=== PATIENT | female | born 1985 | race Hispanic/Latino ===

== ENCOUNTER 2017-11-03 08:50 | Outpatient (CLI) | payer BC | END 2017-11-03 08:51 | disposition home or self-care (01) | LOC: BICULT 08:50 | PROVIDERS: ATTEND Physician Assistant | DX: N97.9 Female infertility, unspecified (principal); N94.89 Other specified conditions associated with female genital organs and menstrual cycle; N63.10 Unspecified lump in the right breast, unspecified quadrant | CPT/HCPCS: 76856 ==

== ENCOUNTER 2018-08-26 06:09 | Inpatient (IN) | payer BC ==
[2018-08-26] MEDS ORDERED: Bicitra 30 ML UDCUP PO SCH (06:18)
[2018-08-26] MEDS ORDERED: CEFAZOLIN/Water 2 GM/20 ML SYRINGE SLOW IVP SCH (06:18)
[2018-08-26] MEDS ORDERED: CEFAZOLIN 2 GM/50 ML-DEXTROSE 2 GM in Premix Bag 1 BAG IVPB SCH (06:30)
[2018-08-26 06:31] VITALS: BMI 29.2
[2018-08-26 07:05] LABS: Hemoglobin 10.4 g/dL (12.0-16.0); Mean Corpuscular HGB CONC 31.7 g/dL (32.0-36.0); Mean Corpuscular Hemoglobin 24.2 pg (27.0-31.0); Mean Corpuscular Volume 76.1 fL (78.0-98.0); Mean Platelet Volume 8.2 fL (7.4-10.4); Platelet Count 488 thou/uL (130-400); RBC Distribution Width 15.8 % (11.5-14.5); White Blood Cell (WBC) Count 14.9 thou/uL (4.8-10.8)
[2018-08-26] MEDS ORDERED: Oxytocin 10 UNITS/ML VIAL ONE (07:30)
[2018-08-26] MEDS ORDERED: Morphine PF 1 MG/ML SYR ONE (07:30)
[2018-08-26] MEDS ORDERED: Bupivacaine 0.75% W/DEXTROSE 8.25% 2 ML AMP ONE (07:31)
[2018-08-26] MEDS ORDERED: PHENYLEPHRINE-NS 100 MCG/ML 10 ML SYRINGE ONE ×3 (07:31→09:42)
[2018-08-26] MEDS ORDERED: Lidocaine 2% PF Inj 2 ML VIAL ONE (07:33)
[2018-08-26] MEDS ORDERED: Lidocaine 1% (PF) 30 ML VIAL ONE (07:34)
[2018-08-26 07:47] LABS: Syphilis Antibody Nonreactive (Nonreactive); Syphilis Antibody Index 0.05 S/CO (<1.00 Non-Reactive)
[2018-08-26 07:48] LABS: HBSAg Index 0.16 S/CO (0-0.99); Hep B Surf Ag Non-Reactive S/CO (NonReactive)
[2018-08-26] MEDS ORDERED: Naloxone HCl 0.4 mg/ml Vial IVP PRN ×2 (08:13)
[2018-08-26] MEDS ORDERED: L&D-Morphine 4 MG/ML VIAL SLOW IVP PRN (08:13)
[2018-08-26] MEDS ORDERED: Meperidine HCl/PF 25 MG/ML VIAL SLOW IVP PRN (08:13)
[2018-08-26] MEDS ORDERED: Eucerin (Mineral Oil/Petrolatum,White) 30 gm Jar TOP PRN (08:13)
[2018-08-26] MEDS ORDERED: Ondansetron PF 4 MG/2 ML Vial IVP PRN (08:13)
[2018-08-26] MEDS ORDERED: Promethazine HCl 25 MG/ML VIAL IM PRN (08:13)
[2018-08-26] MEDS ORDERED: HYDROmorphone 2 MG/ML VIAL SLOW IVP PRN (08:13)
[2018-08-26] MEDS ORDERED: Naloxone HCl 0.4 mg/ml Vial IV PRN (08:13)
[2018-08-26] MEDS ORDERED: Ondansetron HCl/PF 4 MG/2 ML Vial IVP PRN (08:13)
[2018-08-26] MEDS ORDERED: diphenhydrAMINE 50 MG/ML VIAL IVP PRN (08:13)
[2018-08-26] MEDS ORDERED: Promethazine HCl 25 MG SUPP PR PRN (08:13)
[2018-08-26] MEDS ORDERED: Ketorolac Tromethamine 30 MG/ML VIAL IVP SCH (08:15)
[2018-08-26] MEDS ORDERED: Communication Order-Pharmacy FS SCH (08:15)
[2018-08-26] MEDS ORDERED: Bisacodyl 10 MG SUPP PR PRN (08:56)
[2018-08-26] MEDS ORDERED: diphenhydrAMINE 25 MG CAP PO PRN (08:56)
[2018-08-26] MEDS ORDERED: Adacel (T-DAP) 0.5 ML VIAL IM ONE (08:56)
[2018-08-26] MEDS ORDERED: Acetaminophen 325 MG TAB PO PRN (08:56)
[2018-08-26] MEDS ORDERED: Ondansetron PF 4 MG/2 ML Vial ONE (09:00)
[2018-08-26] MEDS: Ondansetron PF 4 MG/2 ML Vial IVP PRN ×2 (09:03→13:12)
--- NOTE | 2018-08-26 09:50 | HP ---
HISTORY OF PRESENT ILLNESS: This is a 33-year-old white female, G2, P1 with an EDC of 09/03/2018 at 39 weeks' gestation, being admitted for an elective repeat section. The patient does have a history of one prior section for failed induction of labor. Her course has been uncomplicated at this time. She does have a history of Crohn's and ankylosing spondylitis. PAST MEDICAL HISTORY: Ankylosing spondylitis, Crohn disease, allergies, history of headaches, and history of asthma. ALLERGIES: NONE. PAST SURGICAL HISTORY: Prior section x1, tonsillectomy, wisdom tooth extraction, and EGD and colonoscopy in March 2011. FAMILY HISTORY: Father with heart disease, mother with hypertension, grandfather with cancer, and maternal grandmother with a CVA. SOCIAL HISTORY: She is , does not smoke, does not drink. Lives with her Arpit. 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 REVIEW OF SYSTEMS: As above. PHYSICAL EXAMINATION: VITAL SIGNS: Stable and afebrile. Physical exam per LABORATORY DATA: GBS negative. HIV negative. 1 hour GTT negative. Hepatitis B negative. RPR negative. Urine culture negative. Rubella immune. AB positive blood type. ASSESSMENT: 1. Term . 2. Prior section for failed induction. 3. Crohn's. 4. Ankylosing spondylitis. 5. History of allergy. 6. History of asthma. PLAN: 1. Routine L and D works. 2. Dr. Hodge to administer anesthesia. He is familiar with the patient. He has given her multiple back injections for her ankylosing spondylitis. 3. N.p.o. after midnight. Job ID: [id number]
[2018-08-26] MEDS ORDERED: Meperidine HCl/PF 25 MG/ML VIAL ONE (10:10)
[2018-08-26] MEDS: Ketorolac Tromethamine 30 MG/ML VIAL IVP PRN (12:18)
--- NOTE | 2018-08-26 13:09 | OP ---
DATE OF PROCEDURE: 08/26/2018 PREOPERATIVE DIAGNOSES: 1. Term . 2. Prior section. 3. Crohn's. 4. Ankylosing spondylitis. POSTOPERATIVE DIAGNOSES: 1. Term . 2. Prior section. 3. Crohn's. 4. Ankylosing spondylitis. PROCEDURE PERFORMED: Repeat low-transverse section. BONDING SUPERVISOR: Dr. Gupta. ANESTHESIA: Spinal. DESCRIPTION OF PROCEDURE: This 33-year-old white female, G2, P1, taken to the operating room, placed in the supine position. Abdomen was prepped and draped sterilely. A Pfannenstiel incision was made over the previous scar. The subcu was incised and taken down to the fascia. The fascia was opened without incident. The peritoneum was opened by blunt dissection. Bladder flap was dissected inferiorly. A low-transverse uterine incision was made. Fluid was noted to be clear. Delivered the baby with use of a vacuum. The baby did breathe and cry vigorously upon delivery. Delivered the placenta manually intact. Dilated the cervix. Closed the uterus in one layer with 1 Monocryl. Evacuated the abdomen of all clots. Closed the peritoneum with 2-0 chromic. Closed the fascia with 0 Vicryl and the skin with daisha. Estimated blood loss, less than 700 mL. Mother and baby did well. Job ID: [id number]
[2018-08-26] MEDS: Ferrous Sulfate 325 MG TAB PO SCH (17:43)
[2018-08-27] MEDS: Ketorolac Tromethamine 30 MG/ML VIAL IVP PRN (03:46)
[2018-08-27 06:43] LABS: Mean Corpuscular HGB CONC 31.9 g/dL (32.0-36.0); Mean Corpuscular Hemoglobin 24.4 pg (27.0-31.0); Mean Corpuscular Volume 76.5 fL (78.0-98.0); Mean Platelet Volume 8.2 fL (7.4-10.4); Platelet Count 373 thou/uL (130-400); RBC Distribution Width 15.7 % (11.5-14.5); Red Blood Cell (RBC) Count 3.67 mill/uL (4.20-5.40); White Blood Cell (WBC) Count 14.1 thou/uL (4.8-10.8)
--- NOTE | 2018-08-27 07:14 | PDOC.PP ---
Post Progress Note Post Day #: 1 Subjective: Doing well. Pain controlled. Some nausea after delivery but that seems better this AM. PO intake tolerated: yes Flatus: yes Ambulation: yes Vital Signs (12 hours) Temp Pulse Resp BP Pulse Ox 08/27/18 04:55 85 18 99/59 L 08/26/18 23:50 98.0 F 77 18 121/71 08/26/18 20:00 98.2 F 82 20 103/59 L 95 Weight Weight 160 lb - Physical Examination General: NAD Cardiovascular: no m/r/g, RRR Respiratory: clear to auscultation bilaterally, non-labored breathing Abdominal: + bowel sounds, lochia, no distention, appropriately TTP Skin: CS incision dry & intact, no rash Result Diagrams: 08/27/18 05:52 Additional Labs: Post Labs Blood Type AB POSITIVE 08/26/18 06:51 Hep Bs Antigen Non-Reactive S/CO (NonReactive) 08/26/18 06:51 (1) delivery, delivered, current hospitalization Code(s): O82 - ENCOUNTER FOR DELIVERY WITHOUT INDICATION Status: Acute - Assessment/Plan Routine post op care Ambulate Advance diet as tolerated Pain control D/C tomorrow or Friday
[2018-08-27] MEDS: Ferrous Sulfate 325 MG TAB PO SCH ×2 (08:48→16:44)
[2018-08-27] MEDS: Ibuprofen 800 MG TAB PO SCH ×2 (13:48→21:53)
[2018-08-27] MEDS ORDERED: Docusate Calcium (SURFAK) 240 MG CAP PO SCH (14:30)
[2018-08-27] MEDS: HYDROcodone/Acetaminophen 5/325 mg Tablet PO PRN (19:17)
[2018-08-27] MEDS: Docusate Calcium (SURFAK) 240 MG CAP PO SCH (21:53)
[2018-08-28] MEDS: HYDROcodone/Acetaminophen 5/325 mg Tablet PO PRN ×3 (05:19→20:05)
[2018-08-28] MEDS: Ibuprofen 800 MG TAB PO SCH ×3 (05:19→21:35)
[2018-08-28] MEDS: Docusate Calcium (SURFAK) 240 MG CAP PO SCH ×2 (09:00→21:35)
[2018-08-28] MEDS: Ferrous Sulfate 325 MG TAB PO SCH ×2 (09:01→14:12)
[2018-08-28] MEDS ORDERED: Cyclobenzaprine 10 MG TAB PO SCH (13:15)
--- NOTE | 2018-08-28 22:23 | PDOC.PP ---
Post Progress Note Post Day #: 2 Subjective: Pain from daisha. Ambulating but c/o poor pain control. Not sure about D/C. PO intake tolerated: yes Flatus: yes Ambulation: yes Vital Signs (12 hours) Temp Pulse Resp BP Pulse Ox 08/28/18 20:05 98 08/28/18 20:00 97.6 F 82 20 125/62 98 Weight Weight 160 lb - Physical Examination General: NAD Cardiovascular: no m/r/g, RRR Respiratory: clear to auscultation bilaterally, non-labored breathing Abdominal: + bowel sounds, lochia, no distention, appropriately TTP Skin: CS incision dry & intact, no rash Result Diagrams: 08/27/18 05:52 Additional Labs: Post Labs Blood Type AB POSITIVE 08/26/18 06:51 Hep Bs Antigen Non-Reactive S/CO (NonReactive) 08/26/18 06:51 (1) delivery, delivered, current hospitalization Code(s): O82 - ENCOUNTER FOR DELIVERY WITHOUT INDICATION Status: Acute - Assessment/Plan Remove daisha and place steri strips. Abdominal binder Probable D/ C tomorrow.
[2018-08-29] MEDS: HYDROcodone/Acetaminophen 5/325 mg Tablet PO PRN ×2 (04:02→08:58)
[2018-08-29] MEDS: Ibuprofen 800 MG TAB PO SCH (06:51)
[2018-08-29] MEDS: Docusate Calcium (SURFAK) 240 MG CAP PO SCH (08:58)
[2018-08-29] MEDS: Ferrous Sulfate 325 MG TAB PO SCH (08:58)
[2018-08-29 09:07] VITALS: BP 111/64; TEMP 98
--- NOTE | 2018-08-29 09:42 | PDOC.PP ---
Post Progress Note Post Day #: 3 Subjective: Doing well. Pain a little better controlled. Ready for D/C. PO intake tolerated: yes Flatus: yes Ambulation: yes Vital Signs (12 hours) Temp Pulse Resp BP Pulse Ox 08/29/18 09:00 98.0 F 78 18 111/64 98 Weight Weight 160 lb - Physical Examination General: NAD Cardiovascular: no m/r/g, RRR Respiratory: clear to auscultation bilaterally, non-labored breathing Abdominal: + bowel sounds, lochia, no distention, appropriately TTP Skin: CS incision dry & intact, no rash Psychiatric: A&Ox3, normal affect Result Diagrams: 08/27/18 05:52 Additional Labs: Post Labs Blood Type AB POSITIVE 08/26/18 06:51 Hep Bs Antigen Non-Reactive S/CO (NonReactive) 08/26/18 06:51 (1) delivery, delivered, current hospitalization Code(s): O82 - ENCOUNTER FOR DELIVERY WITHOUT INDICATION Status: Acute - Assessment/Plan Routine care D/C home F/U in 2 weeks with me
== END 2018-08-29 12:40 | disposition home or self-care (01) | DRG 787 ==
LOC: L&D 06:09 → 3SW 10:51
PROVIDERS: ADMIT Family Medicine; ATTEND Family Medicine
PROC: 10D00Z1 Extraction of Products of Conception, Low, Open Approach (ICD-10-PCS; principal; 2018-08-26)
PROC: 10907ZC Drainage of Amniotic Fluid, Therapeutic from Products of Conception, Via Natural or Artificial Opening (ICD-10-PCS; 2018-08-26)
DX: O63.1 Prolonged second stage (of labor) (principal); K50.90 Crohn's disease, unspecified, without complications; O34.211 Maternal care for low transverse scar from previous cesarean delivery; Z3A.39 39 weeks gestation of pregnancy; Z37.0 Single live birth; O99.62 Diseases of the digestive system complicating childbirth; M45.9 Ankylosing spondylitis of unspecified sites in spine
CPT/HCPCS: 36415; 51702; 85027; 86780; 86850; 86900; 86901; 87340; J1885; J2001; J2175; J2274; J2405; J2590; J3490; J7050

== ENCOUNTER 2018-11-10 09:22 | Outpatient (CLI) | payer BC ==
--- NOTE | 2018-11-10 10:43 | ULT ---
LEFT BREAST ULTRASOUND: Date: 11/10/18 HISTORY: 33-year-old lactating female, a 10-week-old . Comes in with complaints of a left breast mass at the 8 o'clock position. FINDINGS: Sonographic evaluation of the region of palpable concern at the 8 o'clock position of the left breast demonstrates a 1.4 cm well-circumscribed, nonshadowing, solid mass. IMPRESSION: BIRADS Category 4 - Suspicious abnormality. Ultrasound-guided biopsy of the left breast mass is recom mended. Discussed in person with the patient at 0935 hours. POS: OFF
--- NOTE | 2018-11-11 07:41 | ULT ---
LEFT BREAST ULTRASOUND: History: Patient with post- 11 weeks and is breast breathing. Patient has noted a stable mass i n the left breast which does not change in size. Comparison: None. Technique: Targeted sonographic imaging of the left breast is performed at the [address] reviewing static images, real-time imaging was performed in the presence of the radiologist. FINDINGS: Static and real-time images demonstrate a hypoechoic to isoechoic focus measuring 1.4 x 1.1 x 1.2 cm. There is no evidence of vascular flow in the static or real-time images. Real-time imaging does demo nstrate some posterior shadowing. After discussing the findings with the patient, she states that this lesion has been there for 11 wee ks and is unchanged. Patient, as well as the patient's physician, state that they have essentially tr ied to treat for galactocele which has been unsuccessful. In addition, the mass has not changed in si ze. The possibility of a complex cystic lesion cannot be completely excluded given the absence of reggie w. However, given persistency of this mass, a biopsy with ultrasound guidance is recommended. Patient states that she does not want to stop breast feeding at this time. Therefore, 18 gauge biopsy will b e performed to help to minimize any chance of any cutaneous milk fistula or any significant injury to the mild ducts in this region. IMPRESSION: BIRADS category 4 - suspicious finding. Ultrasound guided biopsy of left breast is recommended. Results of study discussed with the patient as well as Dr. Gupta, 11-10-18 at 10:55 a.m. Code CR POS: [facility]
== END 2018-11-10 09:23 | disposition home or self-care (01) ==
LOC: BICMAMMO 09:22
PROVIDERS: ATTEND Family Medicine
DX: N63.24 Unspecified lump in the left breast, lower inner quadrant (principal); N63.10 Unspecified lump in the right breast, unspecified quadrant

== ENCOUNTER → 2018-11-12 | Day surgery (SDC) | payer BC ==
[~2018-11-12] MED LIST: Lidocaine 1% PF 5 ML VIAL ONE; Sodium Bicarbonate 2.5 MEQ/5 ML VIAL ONE
--- NOTE | 2018-11-12 13:42 | ULT ---
ULTRASOUND GUIDED BIOPSY OF THE LEFT BREAST: HISTORY: Left breast mass, persistent for 11 weeks. The patient is currently nursing. COMPARISON: 11/10/2018. FINDINGS: Successful ultrasound-guided biopsy of a left breast mass. A total of two 18-gauge core biopsy sampl es were obtained. Aspiration was also attempted with an 18-gauge needle after the initial core sampl es. Initial pathologic diagnosis is probable galactocele. No evidence of tumor on the initial Touch Prep. TECHNIQUE: Consent was obtained to perform an ultrasound-guided biopsy of a left breast mass. The left breast w as prepped and draped in sterile fashion. 1% Lidocaine, buffered with sodium bicarbonate, was used f or local anesthesia. Under ultrasound guidance, the left breast mass measuring 1.4 x 1.1 x 1.1 cm wa s redemonstrated. Two 18-gauge core biopsy samples were obtained. The 1st lesion was evaluated with Touch Prep. There was no evidence of tumor. Galactocele was favored. A 2nd sample was placed dire ctly in formalin. Given the possibility of a galactocele, an 18-gauge needle was used to try to aspi rate the lesion. A small amount of bloody fluid was noted at the base of the needle and into the pro ximalmost aspect of the syringe. Additional fluid could not be aspirated. The patient tolerated the procedure well. No immediate or postprocedure complications. Given that this lesion may represent a galactocele, a biopsy clip was not placed. IMPRESSION: Successful biopsy of the left breast mass. Final pathologic diagnosis is pending. POS: [facility]
== END ==
LOC: ULT 10:01
PROVIDERS: ATTEND Radiology Diagnostic Radiology
PROC: 0HBU3ZX Excision of Left Breast, Percutaneous Approach, Diagnostic (ICD-10-PCS; principal; 2018-11-12)
DX: N63.24 Unspecified lump in the left breast, lower inner quadrant (principal); N64.89 Other specified disorders of breast; Z91.018 Allergy to other foods
CPT/HCPCS: 19083; 88173; 88305; 88333; J2001

== ENCOUNTER 2022-01-01 14:32 | Outpatient (CLI) | payer BC | END 2022-01-01 14:33 | disposition home or self-care (01) | LOC: BICMAMMO 14:32 | PROVIDERS: ATTEND Family Medicine | DX: Z12.31 Encounter for screening mammogram for malignant neoplasm of breast (principal); Z80.3 Family history of malignant neoplasm of breast; Z91.89 Other specified personal risk factors, not elsewhere classified | CPT/HCPCS: 77063; 77067 ==

== ENCOUNTER 2022-11-18 12:26 | Outpatient (CLI) | payer BC | END 2022-11-18 12:27 | disposition home or self-care (01) | LOC: NM 12:26 | PROVIDERS: ATTEND Family Medicine | DX: R10.9 Unspecified abdominal pain (principal); R94.8 Abnormal results of function studies of other organs and systems | CPT/HCPCS: 78227; A9537 ==